=== PATIENT | male | born 1940 | race Caucasian/White ===

== ENCOUNTER 2024-11-08 18:33 | Emergency (ER) | payer MEDICARE, MEDICAID ==
[~2024-11-08] VITALS: Ht 177.8 cm; Wt 98.0 kg
[2024-11-08 18:48] VITALS: BP 137/78; PULSE 73; RESP 18; TEMP 36.9; O2SAT 98
[2024-11-08] MEDS: TRANEXAMIC ACID 1,000MG/10ML TP ONE (23:45)
[2024-11-08] MEDS: LIDOCAINE HCL/EPINEPHRINE 1%-EPI 1:100,000 10ML VIAL INFIL ONE (23:45)
[2024-11-09 00:03] LABS: BASOPHILS % 0.3 % (0.0-2.0); HEMATOCRIT. 38.5 % (42.0-52.0); LYMPHOCYTES % 41.8 % (20.0-50.0); MEAN CORPUSCULAR HEMOGLOBIN 33.3 pg (28.0-32.0); MEAN CORPUSCULAR HGB CONC 33.8 g/dL (31.0-37.0); MEAN CORPUSCULAR VOLUME 98.5 fL (80.0-94.0); NEUTROPHILS % 48.9 % (40.0-76.0); PLATELET 394 x1000/uL (130-400); RED BLOOD CELL COUNT 3.91 mill/uL (4.7-6.1); RED CELL DISTRIBUTION WIDTH 14.9 % (11.6-14.6); WHITE BLOOD COUNT 9.9 x1000/uL (4.5-11.0)
[2024-11-09 00:08] LABS: PROTHROMBIN TIME 10.9 sec (9.6-11.0)
[2024-11-09 00:09] LABS: POTASSIUM 4.1 mEq/L (3.5-5.1)
[2024-11-09 00:11] LABS: CALCIUM 10.5 mg/dL (8.7-10.4)
[2024-11-09 00:15] LABS: CREATININE 1.4 mg/dL (0.6-1.3)
== END 2024-11-09 02:03 | disposition home or self-care (01) ==
LOC: ER 18:33
DX: R04.0 Epistaxis (principal); I48.91 Unspecified atrial fibrillation; I10 Essential (primary) hypertension; Z95.0 Presence of cardiac pacemaker; Z79.899 Other long term (current) drug therapy
CPT/HCPCS: 30901; 36415; 80048; 85025; 99284